=== PATIENT | female | born 1990 | race Caucasian/White ===

== ENCOUNTER 2022-07-31 17:17 | Emergency (ER) | payer SELFPAY ==
[~2022-07-31 17:17] MED LIST: ALBU90OI INH; BENZ100A PO; GUAN1; QUET25
[2022-07-31] MEDS ORDERED: Amoxicillin500 MG PO (17:47)
== END 2022-07-31 17:53 | disposition home or self-care (01) ==
DX: K04.7 Periapical abscess without sinus (principal); F17.200 Nicotine dependence, unspecified, uncomplicated

== ENCOUNTER 2023-05-10 18:13 | Emergency (ER) | payer OTHER ==
[~2023-05-10] VITALS: Ht 154.9 cm; Wt 54.4 kg
[~2023-05-10 18:13] MED LIST changes: +Amoxicillin500 MG PO
[2023-05-10 18:39] VITALS: BP 140/86
[2023-05-10 19:29] LABS: Influenza A, PCR NEGATIVE (NEGATIVE); Influenza B, PCR NEGATIVE (NEGATIVE); Resp Syncytial Virus, PCR NEGATIVE (NEGATIVE)
[2023-05-11 00:02] LABS: SARS-Cov-2 (COVID-19) PCR, MMC POSITIVE (NEGATIVE)
== END 2023-05-10 21:23 | disposition left against medical advice (07) ==
LOC: ER 18:13
PROVIDERS: Student in an Organized Health Care Education/Training Program
DX: R50.9 Fever, unspecified (principal); R63.0 Anorexia; J02.9 Acute pharyngitis, unspecified; H92.01 Otalgia, right ear; Z53.21 Procedure and treatment not carried out due to patient leaving prior to being seen by health care provider
CPT/HCPCS: 0241U

== ENCOUNTER → 2023-09-14 | Outpatient (CLI) | payer OTHER | LOC: LAB SHORT 12:13 → LAB 12:13 | DX: N39.0 Urinary tract infection, site not specified (principal) | CPT/HCPCS: 87086 ==

== ENCOUNTER → 2023-10-07 | Outpatient (CLI) | payer OTHER ==
[2023-10-07 18:58] LABS: Hematocrit 40.6 % (33.0-51.0); Hemoglobin 13.7 g/dL (11.5-16.0); Mean Corpuscular HGB 32.3 pg (26.0-34.0); Mean Corpuscular HGB Conc 33.7 g/dL (31.5-36.5); Mean Corpuscular Volume 96 fL (80-100); Mean Platelet Volume 10.7 fL (9.1-12.4); Platelet Count 282 K/mm3 (150-400); RDW Coefficient Variation 12.8 % (11.7-14.2); Red Blood Cell Count 4.24 M/mm3 (3.80-5.20)
[2023-10-07 19:21] LABS: CHOL/HDL RATIO 2.3; Cholesterol 219 mg/dL (50-200); HDL Cholesterol 96 mg/dL (>39); LDL/HDL RATIO 0.7; Low Density Lipoprotein Chol 63 mg/dL (0-110); Triglycerides 300 mg/dL (30-140); Very Low Density Lipoprot Chol 60 mg/dL (6-28)
[2023-10-07 19:32] LABS: BASOPHILS PERCENT MAN 0 % (0-2); EOSINOPHILS ABSOLUTE MAN 0.33 K/mm3 (0.00-0.68); EOSINOPHILS PERCENT MAN 3 % (0-6); LYMPHOCYTES % ATYPICAL MANUAL 1 % (0-0); LYMPHOCYTES PERCENT MAN 36 % (21-46); MONOCYTES ABSOLUTE MAN 0.44 K/mm3 (0.16-1.47); MONOCYTES PERCENT MAN 4 % (4-13); NEUTROPHILS ABSOLUTE MAN 6.21 K/mm3 (1.96-9.15); SEG NEUTROPHILS PERCENT MAN 56 % (41-73); TOTAL CELLS COUNTED 100
[2023-10-10 15:07] LABS: BILIRUBIN, TOTAL 0.4 mg/dL (0.0-1.2); CREATININE, SERUM 0.8 mg/dL (0.57-1.00); GLOBULIN, TOTAL 2.3 g/dL (1.5-4.5); POTASSIUM, SERUM 3.8 mmol/L (3.5-5.2)
== END | disposition home or self-care (01) ==
LOC: LAB SHORT 17:51 → LAB 17:51
PROVIDERS: Nurse Practitioner Family
DX: Z13.29 Encounter for screening for other suspected endocrine disorder (principal); Z13.6 Encounter for screening for cardiovascular disorders; Z13.0 Encounter for screening for diseases of the blood and blood-forming organs and certain disorders involving the immune mechanism; Z13.228 Encounter for screening for other metabolic disorders
CPT/HCPCS: 80053; 80061; 84443; 85025

== ENCOUNTER → 2024-02-14 | Outpatient (CLI) | payer OTHER ==
[~2024-02-14] MED LIST changes: +IBUP600 PO
== END | disposition home or self-care (01) ==
LOC: LAB 17:20 → LAB SHORT 17:20
DX: L02.619 Cutaneous abscess of unspecified foot (principal); L03.119 Cellulitis of unspecified part of limb
CPT/HCPCS: 87070; 87147; 87205

== ENCOUNTER 2024-05-19 00:26 | Observation (INO) | payer OTHER ==
[~2024-05-19] VITALS: Ht 154.9 cm; Wt 56.7 kg
[2024-05-19] MEDS ORDERED: GABA100 (01:05)
[2024-05-19] MEDS ORDERED: EUTHYROX25 MC1 PO ×2 (01:05)
[2024-05-19] MEDS ORDERED: IBU800 M1 PO ×2 (01:06)
[2024-05-19 01:22] LABS: BASOPHILS ABSOLUTE AUTO 0.08 K/mm3 (0.00-0.23); BASOPHILS PERCENT AUTO 1 % (0-2); EOSINOPHILS ABSOLUTE AUTO 0.22 K/mm3 (0.00-0.68); EOSINOPHILS PERCENT AUTO 2 % (0-6); Hematocrit 38.6 % (33.0-51.0); Hemoglobin 13.5 g/dL (11.5-16.0); Mean Corpuscular HGB 31.9 pg (26.0-34.0); Mean Corpuscular Volume 91 fL (80-100); Mean Platelet Volume 9.2 fL (9.1-12.4); Platelet Count 461 K/mm3 (150-400); RDW Coefficient Variation 12.6 % (11.7-14.2); RDW Standard Deviation 41.4 fL (35.1-46.3); Red Blood Cell Count 4.23 M/mm3 (3.80-5.20); White Blood Cell Count 13.16 K/mm3 (4.00-11.30)
[2024-05-19 01:23] LABS: IMMATURE GRAN ABSOLUTE AUTO 0.07 K/mm3 (0.00-0.10); IMMATURE GRAN PERCENT AUTO 1 % (0-1); LYMPHOCYTES ABSOLUTE AUTO 4.97 K/mm3 (0.84-5.20); LYMPHOCYTES PERCENT AUTO 38 % (21-46); MONOCYTES ABSOLUTE AUTO 0.62 K/mm3 (0.16-1.47); MONOCYTES PERCENT AUTO 5 % (4-13); NEUTROPHILS PERCENT AUTO 55 % (41-73)
[2024-05-19 01:30] LABS: Source, Urine Clean Catch
[2024-05-19 01:34] LABS: Bilirubin, Urine Neg (Neg); Blood, Urine Neg (Neg); Glucose Qualitative, Urine Neg (Neg); Ketones, Urine Neg (Neg); Leukocyte Esterase, Urine Neg (Neg); Nitrite, Urine Neg (Neg); Protein, Urine Neg (Neg); Specific Gravity, Urine 1.015 (1.003-1.022); Urobilinogen, Urine NORM (Normal); pH, Urine 6.5 (5.0-8.0)
[2024-05-19 01:42] LABS: Ethanol (Alcohol), Blood, Med 57 mg/dL; Salicylate <1.7 mg/dL (2.8-20.0)
[2024-05-19 01:48] LABS: Alanine Aminotransfer (ALT/SGP 20 U/L (12-78); Albumin, Blood 3.7 g/dL (3.4-5.0); Albumin/Globulin Ratio 0.9 (0.8-1.8); Alk Phos 70 U/L (50-136); Anion Gap 13 mmol/L (3-11); Aspartate Aminotrans (AST/SGOT 28 U/L (12-37); Bilirubin, Total 0.3 mg/dL (0.1-1.0); Blood Urea Nitrogen 5 mg/dL (8-24); Bun/Creatinine Ratio 9.1 (12.0-20.0); CO2, Blood 18 mmol/L (21-32); Calcium, Blood 9.4 mg/dL (8.5-10.1); Chloride, Blood 112 mmol/L (98-108); Creatinine, Blood 0.55 mg/dL (0.40-1.00); Globulin, Blood 4.3 g/dL (2.2-4.0); Glomerular Filtration Rate 123 (60-); Glucose, Blood 88 mg/dL (70-99); Potassium, Blood 4.4 mmol/L (3.5-5.5); Sodium, Blood 139 mmol/L (136-145)
[2024-05-19 01:48] LABS: Appearance, Urine Clear (Clear); Color, Urine Yellow (P-Yellow)
[2024-05-19 01:50] LABS: Acetaminophen, Random <2.0 ug/mL (10.0-30.0)
[2024-05-19 02:04] LABS: U Amphetamine Screen Not Detected; U Barbituate Screen Not Detected; U Benzodiazapine Screen Not Detected; U Buprenorphine Screen Not Detected; U Cannabinoids Screen DETECTED; U Cocaine Screen Not Detected; U Methadone Screen Not Detected; U Methamphetamine Screen Not Detected; U Opiates Screen Not Detected; U Oxycodone Screen Not Detected; U Phencyclidine Screen Not Detected
[2024-05-19 03:03] LABS: Influenza A, PCR NEGATIVE (NEGATIVE); Influenza B, PCR NEGATIVE (NEGATIVE); Resp Syncytial Virus, PCR NEGATIVE (NEGATIVE); SARS-Cov-2 (COVID-19) PCR, MMC NEGATIVE (NEGATIVE)
[2024-05-19] MEDS ORDERED: LORazepam 2 MG/ML 1ML Injection IM ONE ×2 (10:35→16:05)
[2024-05-19] MEDS ORDERED: DiphenhydrAMINE HCl 50 MG/ML 1ML Vial IM ONE (16:05)
[2024-05-19] MEDS ORDERED: Haloperidol Lactate Inj. 5 MG/ML Injection IM ONE (16:05)
[2024-05-20] MEDS ORDERED: Ziprasidone Mesylate 20 MG / Vial IM ONE (08:30)
[2024-05-20] MEDS ORDERED: Nicotine Polacrilex 2 MG Gum PO PRN (09:15)
[2024-05-20] MEDS ORDERED: Nicotine 21 MG PATCH TOP ONE (09:15)
[2024-05-20] MEDS ORDERED: OLANZapine 5 MG Tab PO SCH (21:00)
[2024-05-20] MEDS ORDERED: Melatonin 5 MG Tablet PO ONE (21:45)
[2024-05-21] MEDS ORDERED: Nicotine 21 MG PATCH TOP SCH (09:00)
[2024-05-21 09:10] VITALS: BP 133/90
== END 2024-05-21 15:44 | disposition other institution (70) ==
LOC: ER 00:26 → EOR 00:27
PROVIDERS: ADMIT Student in an Organized Health Care Education/Training Program
DX: R45.851 Suicidal ideations (principal); F17.200 Nicotine dependence, unspecified, uncomplicated
CPT/HCPCS: 0241U; 80053; 80320; 81003; 81025; 85025; 93005; 93010; 99285-25; A9270; G0378; G0480; J1200; J1630; J2060; J3486

== ENCOUNTER 2024-05-19 10:42 | Inpatient (IN) | payer OTHER ==
[~2024-05-19] VITALS: Ht 154.9 cm; Wt 56.8 kg
[~2024-05-19 10:42] MED LIST changes: +EUTHYROX25 MC1 PO; +GABA100; +IBU800 M1 PO
[2024-05-19] MEDS ORDERED: OLANZapine 10 MG Vial IM PRN (12:10)
[2024-05-19] MEDS ORDERED: Haloperidol 5 MG Tab PO PRN (12:10)
[2024-05-19] MEDS ORDERED: Haloperidol Lactate Inj. 5 MG/ML Injection IM PRN (12:10)
[2024-05-19] MEDS ORDERED: DiphenhydrAMINE HCl 50 MG Cap PO PRN (12:10)
[2024-05-19] MEDS ORDERED: OLANZapine ODT 10 MG Tab MM PRN (12:10)
[2024-05-19] MEDS ORDERED: DiphenhydrAMINE HCl 50 MG/ML 1ML Vial IM PRN (12:10)
[2024-05-19] MEDS ORDERED: Melatonin 3 MG Tab PO PRN (12:10)
[2024-05-19] MEDS ORDERED: CloNIDine 0.1 MG Tab PO PRN (12:15)
[2024-05-19] MEDS ORDERED: Acetaminophen 325 MG TABLET PO PRN (12:15)
[2024-05-19] MEDS ORDERED: LORazepam 2 MG/ML 1ML Injection IM PRN ×3 (12:15)
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
[2024-05-21] MEDS ORDERED: Nicotine Polacrilex 2 MG Gum PO PRN (19:05)
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
[2024-05-22] MEDS ORDERED: TraZODone HCl 50 MG Tab PO ONE (01:20)
[2024-05-22] MEDS ORDERED: Ibuprofen 600 MG Tab PO PRN (01:20)
[2024-05-22] MEDS ORDERED: Ibuprofen 400 MG Tab PO PRN (01:35)
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
[2024-05-22 03:14] VITALS: BP 118/95
--- NOTE | 2024-05-22 05:25 | NUR ---
SHIFT SUMMARY PT TOOK A THIRD HOT SHOWER AT 3:30. WAS ABLE TO SLEEP AFTER THAT. SHE WASN'T ABLE TO SLEEP FROM THE TIME SHE WENT TO BED UNTIL AFTER SHOWER. WILL CONTINUE TO MONITOR.
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
[2024-05-22] MEDS ORDERED: Nicotine 21 MG PATCH TOP SCH (09:00)
[2024-05-22] MEDS ORDERED: FLUoxetine HCL 20 MG CAP PO SCH (12:00)
[2024-05-22] MEDS ORDERED: BusPIRone HCl 5 MG Tab PO SCH (14:00)
--- NOTE | 2024-05-22 17:56 | NUR ---
SHIFT SUMMARY PT A/O X4; PLEASANT AND COOPERATIVE WITH CARE. PT DENIES SI, HI, OR ANY HALLUCINATIONS THIS SHIFT. PT DID NOT SLEEP WELL LAST NIGHT AND REPORTS BEING TIRED THIS SHIFT. SHE HAS ATTENDED MOST GROUPS BUT HAS BEEN ASLEEP FOR A FEW OF THEM. 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 HOWEVER, PT WAS ABLE TO CALM DOWN AND HAS STARTED PROZAC AND BUSPAR THIS SHIFT.
[2024-05-22] MEDS ORDERED: TraZODone HCl 50 MG Tab PO SCH (21:00)
[2024-05-22 21:07] VITALS: BP 136/77
--- NOTE | 2024-05-23 04:03 | NUR ---
PT IS VISIBLE ON THE UNIT AND INTERACTS APPROPRIATELY WITH PEERS. HYGIENE [place]. PT'S MOOD WAS BRIGHT THIS EVENING AND SHE WAS COMPLIANT WITH MEDICATIONS. PT DID C/O ABOUT INSOMNIA THE PREVIOUS NIGHT AND REQUSTED PRN MEDICATION FOR SLEEP. PT DENIES SI/HI AND AVH. CURRENTLY, PT IS IN BED WITH EYES CLOSED RESTING COMFORTABLY IN NAD. RESPIRATIONS EVEN AND UNLABROED. CHECKS DONE Q15.
[2024-05-23 08:56] VITALS: BP 130/94
--- NOTE | 2024-05-23 17:05 | NUR ---
SHIFT SUMMARY PT AxOx4. PLEASANT AND COOPERATIVE WITH CARE. PT WAS SEEN SMILING AND SOCIALIZING FREQUENTLY WHILE MINGLING ON THE UNIT TODAY. PT PARTICIPATED IN GROUPS AND HAD VISIT WITH FREEZER OPERATOR. PT EXPECTING DC TOMORROW. FOLLOWING CARE PLAN AND MED COMPLIANT. PT CURRENTLY SITTING IN [place] EATING DINNER. DENIES ANY CONCERNS.
[2024-05-23 20:35] VITALS: BP 122/82
--- NOTE | 2024-05-23 21:43 | NUR ---
Pt is visible on the unit and interacts appropriately with peers. Hygiene adeqaute. Mood and affect were bright tonight and Pt says she is excited to go home tomorrow. Pt is compliant with medications and denies SI/HI and AVH. Will continue to monitor Q15.
--- NOTE | 2024-05-24 06:23 | NUR ---
PT IS IN BED WITH EYES CLOSED RESTING COMFORTABLY IN NAD. RESPIRATIONS EVEN AND UNLABORED. CHECKS DONE Q15.
[2024-05-24 08:46] VITALS: BP 118/81
[2024-05-24] MEDS ORDERED: TRAZ50 PO ×2 (14:41)
[2024-05-24] MEDS ORDERED: BUSP5 PO ×2 (14:42)
[2024-05-24] MEDS ORDERED: Prozac20 MG PO ×2 (14:42)
--- NOTE | 2024-05-24 15:29 | NUR ---
ALL PT BELONGINGS RETURNED 05/24/2024 @ [id number]. PT SIGNED ALL DOCUMENTS AT DISCHARGE.
--- NOTE | 2024-05-24 15:57 | NUR ---
DISCHARGE SUMMARY PT AxOx4. PLEASANT AND COOPERATIVE WITH CARE. PT DISCHARGING HOME TODAY. PT HAS BEEN FOLLOWING CARE PLAN RECOMMENDED. PT ATTENDING GROUPS, TAKING MEDS PRESCRIBED AND MINGLING WITH STAFF/PEERS APPROPRIATELY ON THE UNIT. PT DENIES SI/HI AND AVH THIS SHIFT. SHE REPORTS SLEEPING WELL AFTER TAKING HER NEW TRAZODONE RX QHS. PT GIVEN DISCHARGE INSTRUCTIONS INCLUDING DC MEDS, FOLLOW UP APPT INFO AND PATIENT EDUCATION ON NEW MEDS AND DIAGNOSES. PT VERBALIZED UNDERSTANDING. DENIED FURTHER QUESTIONS. PT'S BELONGINGS RETURNED. PT SAFELY ESCORTED OUT TO VEHICLE WITH MHA AND THIS RN.
== END 2024-05-24 15:14 | disposition home or self-care (01) | DRG 885 ==
LOC: BHU 10:42
PROVIDERS: ADMIT Student in an Organized Health Care Education/Training Program
DX: F33.2 Major depressive disorder, recurrent severe without psychotic features (principal); R45.851 Suicidal ideations; F43.23 Adjustment disorder with mixed anxiety and depressed mood; Z91.51 Personal history of suicidal behavior; F17.200 Nicotine dependence, unspecified, uncomplicated; Z79.890 Hormone replacement therapy; Z79.899 Other long term (current) drug therapy
CPT/HCPCS: A9270

== ENCOUNTER 2024-09-04 17:04 | Emergency (ER) | payer OTHER ==
[~2024-09-04] VITALS: Ht 157.5 cm; Wt 68.0 kg
[~2024-09-04 17:04] MED LIST changes: +BUSP5 PO; +Prozac20 MG PO; +TRAZ50 PO
[2024-09-04 17:45] VITALS: BP 136/94
[2024-09-04 18:43] LABS: BASOPHILS ABSOLUTE AUTO 0.03 K/mm3 (0.00-0.23); BASOPHILS PERCENT AUTO 0 % (0-2); EOSINOPHILS ABSOLUTE AUTO 0.08 K/mm3 (0.00-0.68); EOSINOPHILS PERCENT AUTO 1 % (0-6); Hematocrit 40.7 % (33.0-51.0); Hemoglobin 14.4 g/dL (11.5-16.0); IMMATURE GRAN ABSOLUTE AUTO 0.03 K/mm3 (0.00-0.10); IMMATURE GRAN PERCENT AUTO 0 % (0-1); LYMPHOCYTES ABSOLUTE AUTO 3.99 K/mm3 (0.84-5.20); LYMPHOCYTES PERCENT AUTO 38 % (21-46); MONOCYTES ABSOLUTE AUTO 0.56 K/mm3 (0.16-1.47); MONOCYTES PERCENT AUTO 5 % (4-13); Mean Corpuscular HGB 32.4 pg (26.0-34.0); Mean Corpuscular HGB Conc 35.4 g/dL (31.5-36.5); Mean Corpuscular Volume 92 fL (80-100); Mean Platelet Volume 9.5 fL (9.1-12.4); NEUTROPHILS ABSOLUTE AUTO 5.91 K/mm3 (1.96-9.15); NEUTROPHILS PERCENT AUTO 56 % (41-73); Platelet Count 284 K/mm3 (150-400); RDW Coefficient Variation 12.5 % (11.7-14.2); RDW Standard Deviation 42.1 fL (35.1-46.3); Red Blood Cell Count 4.45 M/mm3 (3.80-5.20)
[2024-09-04 19:12] LABS: Albumin, Blood 3.9 g/dL (3.4-5.0); Bilirubin, Total 0.6 mg/dL (0.1-1.0); Bun/Creatinine Ratio 13.7 (12.0-20.0); Calcium, Blood 9.1 mg/dL (8.5-10.1); Creatinine, Blood 0.59 mg/dL (0.40-1.00); Globulin, Blood 4.1 g/dL (2.2-4.0); Potassium, Blood 3.6 mmol/L (3.5-5.5)
== END 2024-09-04 20:31 | disposition home or self-care (01) ==
LOC: ER 17:04
PROVIDERS: Emergency Medicine
DX: B34.9 Viral infection, unspecified (principal); R07.89 Other chest pain; Z79.890 Hormone replacement therapy; Z79.899 Other long term (current) drug therapy; F17.200 Nicotine dependence, unspecified, uncomplicated
CPT/HCPCS: 71046; 80053; 83690; 84484; 85025; 93005; 93010; 99285-25

== ENCOUNTER 2024-12-16 20:09 | Emergency (ER) | payer OTHER ==
[~2024-12-16] VITALS: Ht 154.9 cm; Wt 56.7 kg
[2024-12-16 20:20] VITALS: BP 145/106
== END 2024-12-16 21:50 | disposition home or self-care (01) ==
LOC: ER 20:09
DX: S99.922A Unspecified injury of left foot, initial encounter (principal); Y04.0XXA Assault by unarmed brawl or fight, initial encounter; F17.200 Nicotine dependence, unspecified, uncomplicated; Z79.899 Other long term (current) drug therapy
CPT/HCPCS: 73660; 99283-25